=== PATIENT | male | born 1990 | race Caucasian/White ===

== ENCOUNTER 2020-03-13 10:45 | Emergency (ER) | payer OTHER ==
[2020-03-13 10:54] VITALS: BP 150/94; PULSE 120; TEMP 98.3; BMI 26.6
--- NOTE | 2020-03-13 10:56 | PDOC ---
Attending Attestation - Resident Resident Name: Kesha Gandara - ED Attending Attestation I have performed the following: I have examined & evaluated the patient, The case was reviewed & discussed with the resident, I agree w/resident's findings & plan, Exceptions are as noted - HPI HPI: 03/13/20 11:24 29 years old [id number] presents to the emergency department with laceration palmar surface right MCP joint full range of motion tetanus not up-to-date no other injury sustained - Physicial Exam PE: 03/13/20 11:24 Vitals: Triage Vital signs reviewed General Appearance: No acute distress, well nourished well developed, Head: Atraumatic, Extremities: Full range of motion to all extremities, no cyanosis, clubbing, or edema Hand: Fifth digit right hand normal sensation, FDS FDP intact, patient feels slight decrease in strength at the FDS site Skin: 1 cm laceration palmar surface fifth digit MCP joint Neuro: strength intact to all extremities, sensation intact to all extremities, Psych: Normal mood, normal affect - Medical Decision Making 03/13/20 11:25 Grossly normal exam some subjective weakness at the FDS joint. Will discuss with hand suture and outpatient follow-up Discharge - Discharge Information Problems reviewed: Yes Clinical Impression/Diagnosis: Laceration Condition: Good Disposition: HOME - Follow up/Referral Referrals: Mike Munoz MD [Staff Physician] - Solitario Cervantes MD [Staff Physician] - Hermes Spears MD [Staff Physician] - Anthony Cunningham MD [Staff Physician] - - Patient Discharge Instructions Patient Printed Discharge Instructions: DI for Laceration Repair Additional Instructions: You were seen in the ER today for a laceration to the hand. Keep the area clean and dry. Do not wet it for 24 hours. You can apply ice for the swelling and you can take Tylenol or ibuprofen for the pain as needed. You should follow up with a hand specialist in 1 week. Referrals have been provided below. If you have not seen one or are unable to, you can return to the ER for evaluation of your hand. You were given a tetanus shot in the ED. This will cover you until the year 2029. Come back to the ER if the hand keeps getting swollen, you are unable to bend the fingers (especially the pinky), you have numbness in the fingers, there is worsening pain or if any new or concerning symptom develops. Thank you - Post Discharge Activity Work/Back to School Note: Back to Work
[2020-03-13] MEDS ORDERED: DIPHTH,PERTUSS(ACELL),TET 0.5 ML DISP.SYRIN IM ONE ×2 (10:58→11:21)
--- NOTE | 2020-03-13 11:05 | PDOC ---
History of Present Illness - General Chief Complaint: Laceration Stated Complaint: HAND LACERATION Time Seen by Provider: 03/13/20 10:49 History Source: Patient Exam Limitations: No Limitations - History of Present Illness Initial Comments: 03/13/20 11:01 29y M with no significant PMH presenting to the ER for laceration to the R hand. Pt was opening a drawer and was cut by a box annealer. welt cutter was clean. Feels some tingling in tip of the 5th digit and endorses pain at the site of injury. Denies head injury, LOC, chest pain, sob, abdominal pain, n/v/d. Pt is R hand dominant. PMD: PMH: none PSH: none Meds: none Allergies: nkda 03/13/20 11:09 Past History - Medical History Allergies/Adverse Reactions: Allergies Allergy/AdvReac Type Severity Reaction Status Date / Time No Known Allergies Allergy Verified 11/06/11 16:27 Home Medications: Ambulatory Orders No Home Medications 0 dose .ROUTE UTDICT 07/09/12 COPD: No - Psycho-Social/Smoking History Smoking Status: No Smoking History: Never smoked Number of Cigarettes Smoked Daily: 0 - Substance Abuse Hx (Audit-C & DAST Scrn) How often the patient has a drink containing alcohol: Never Score: In Men: 4 or > Positive; In Women: 3 or > Positive: 0 Screen Result (Pos requires Nsg. Audit-10AR): Negative In the last yr the pt used illegal drug/Rx for NonMed reason: No Score: Yes response is considered Positive: 0 Screen Result (Positive result requires Nsg. DAST-10): Negative Review of Systems - Review of Systems Constitutional: No: Symptoms Reported HEENTM: No: Symptoms Reported Respiratory: No: Symptoms reported Cardiac (ROS): No: Symptoms Reported ABD/GI: No: Symptoms Reported Musculoskeletal: Yes: See HPI Integumentary: Yes: See HPI Neurological: Yes: See HPI *Physical Exam - Vital Signs Last Vital Signs Temp Pulse Resp BP Pulse Ox 98.3 F 120 H 18 150/94 98 03/13/20 10:47 03/13/20 10:47 03/13/20 10:47 03/13/20 10:47 03/13/20 10:47 - Physical Exam General Appearance: Yes: Nourished, Appropriately Dressed. No: Apparent Distress HEENT: positive: EOMI, ANA Neck: positive: Trachea midline, Supple Respiratory/Chest: negative: Respiratory Distress, Rapid RR Cardiovascular: positive: Tachycardia. negative: JVD Comments:: 03/13/20 11:05 radial pulses 2+ bilaterally Gastrointestinal/Abdominal: positive: Soft. negative: Tender Musculoskeletal: positive: Normal Inspection Extremity: positive: Normal Capillary Refill, Normal Range of Motion, Other (subjective weak R 5th finger flexion with isolated DIP, IIP and PIP flexion). negative: Swelling Integumentary: positive: Normal Color, Dry, Warm, Other (4cm linear laceration to palmar aspect of R palm laterally (lateral distal palmar crease)) Neurologic: positive: class c driver II-XII NML intact, Fully Oriented, Alert, Normal Mood/Affect, Normal Response, Motor Strength 5/5 Procedures - Laceration/Wound Repair Right Lateral Plantar Hand Wound Length: 2.6 to 5.0 cm Wound Explored: clean, no foreign body present Wound's Depth, Shape: into muscle, linear Irrigated w/ Saline: Yes Anesthesia: 1% Lidocaine Amount of Anesthetic (ccs): 5 Wound Repaired With: Sutures Suture Size/Type: 4:0 Number of Sutures: 8 Medical Decision Making - Medical Decision Making 03/13/20 11:09 29y m presenting with laceration on R palm on lateral distal palmar crease. is able to range digits normally. vitals: tachycardic and mildly hypertensive likely 2/2 pain. will reassess. r 5th digit flexion is intact with normal strength, pt reports subjective weakness and tingling on tip of digit. -Boostrix -given location of injury and subjective weakness, pt could have partial tear of flexor tendons. given ortho in house will ask to evaluate prior to repair. bleeding controlled with pressure and gauze. 03/13/20 12:47 unable to have hand evalute. low suspicion for tendon involvement. will repair with sutures (refer to procedure note). care instructions and return precautions discussed with pt. advised to f/u with hand. will dc home. Discharge - Discharge Information Problems reviewed: Yes Clinical Impression/Diagnosis: Laceration Condition: Good Disposition: HOME - Admission No - Follow up/Referral Referrals: Solitario Cervantes MD [Staff Physician] - Mike Munoz MD [Staff Physician] - Hermes Spears MD [Staff Physician] - Anthony Cunningham MD [Staff Physician] - - Patient Discharge Instructions Patient Printed Discharge Instructions: DI for Laceration Repair Additional Instructions: You were seen in the ER today for a laceration to the hand. Keep the area clean and dry. Do not wet it for 24 hours. You can apply ice for the swelling and you can take Tylenol or ibuprofen for the pain as needed. You should follow up with a hand specialist in 1 week. Referrals have been provided below. If you have not seen one or are unable to, you can return to the ER for evaluation of your hand. You were given a tetanus shot in the ED. This will cover you until the year 2030. Come back to the ER if the hand keeps getting swollen, you are unable to bend the fingers (especially the pinky), you have numbness in the fingers, there is worsening pain or if any new or concerning symptom develops. Thank you - Post Discharge Activity Work/Back to School Note: Back to Work
--- OUTSIDE RECORDS SUMMARY | 2020-03-13 11:25 | XMS ---
:1990 Author Organization [facility] Support Name Relationship Address Phone ZEHRA Unavailable Unavailable Unavailable BETO [address] PH [phone] [place] [address] Re-disclosure Warning The records that you are about to access may contain information from federally- assisted alcohol or drug abuse programs. If such information is present, then the following federally mandated warning applies: This information has been disclosed to you from records protected by federal confidentiality rules (42 CFR part 2). The federal rules prohibit you from making any further disclosure of this information unless further disclosure is expressly permitted by the written consent of the person to whom it pertains or as otherwise permitted by 42 CFR part 2. A general authorization for the release of medical or other information is NOT sufficient for this purpose. The Federal rules restrict any use of the information to criminally investigate or prosecute any alcohol or drug abuse patient.The records that you are about to access may contain highly sensitive health information, the redisclosure of which is protected by Article 27-F of the [facility] Public Health law. If you continue you may haveaccess to information: Regarding HIV / AIDS; Provided by facilities licensed or operated by the [facility] Office of Mental Health; or Provided by the [facility] Office for People With Developmental Disabilities. If such information is present, then the following [facility] mandated warning applies: This information has been disclosed to you from confidential records which are protected by state law. State law prohibits you from making any further disclosure of this information without the specific written consent of the person to whom it pertains, or as otherwise permitted by law. Any unauthorized further disclosure in violation of state law may result in a fine or skilled nursing sentence or both. A general authorization for the release of medical or other information is NOT sufficient authorization for further disclosure. Insurance Providers Payer name Policy type Policy ID Covered Covered republican's Policy P alma delia / Coverage republican ID relationship to Ribeiro Inf ormation type ribeiro [employer] [id number] ETHAN [id number] HEALTHCARE O 1 HEALTH SOURCE [id number]
== END 2020-03-13 12:46 | disposition home or self-care (01) ==
LOC: FER 10:45
PROC: 0HQFXZZ Repair Right Hand Skin, External Approach (ICD-10-PCS; principal; 2020-03-13)
PROC: 3E0234Z Introduction of Serum, Toxoid and Vaccine into Muscle, Percutaneous Approach (ICD-10-PCS; 2020-03-13)
DX: S61.411A Laceration without foreign body of right hand, initial encounter (principal)
CPT/HCPCS: 90715; 99284-25